=== PATIENT | female | born 1995 | race Caucasian/White ===

== ENCOUNTER 2016-12-28 13:35 | Inpatient (IN) | payer MEDICAID ==
[~2016-12-28] VITALS: Ht 154.9 cm; Wt 81.6 kg
[2016-12-28 15:35] LABS: HEMATOCRIT 33.9 % (36.0-48.0); HEMOGLOBIN 11.3 g/dL (12-16); MCHC 33.3 g/dL (31.0-37.0); MCV 86.9 fL (80.0-100.0); MEAN PLATELET VOLUME 10.8 fL (7.4-10.4); RBC 3.9 10x6/uL (4.00-5.40); RDW 13.9 % (11.5-14.5); WBC 19.3 10x3/uL (4.8-10.8)
[2016-12-28 16:37] LABS: APPEARANCE CLEAR (CLEAR); BACTERIA FEW /hpf (NONE SEEN); BILIRUBIN NEGATIVE (NEGATIVE); COLOR YELLOW (YELLOW); GLUCOSE NEGATIVE (NEGATIVE); KETONE NEGATIVE (NEGATIVE); LEUKOCYTE ESTERASE TRACE (NEGATIVE); NITRITE NEGATIVE (NEGATIVE); PROTEIN NEGATIVE (NEGATIVE); UROBILINOGEN NORMAL (NORMAL); WHITE CELLS - URINE 0-5 /hpf (0-5)
[2016-12-28 16:46] LABS: UDS - AMPHET NEGATIVE QUAL (NEGATIVE); UDS - BARB NEGATIVE QUAL (NEGATIVE); UDS - BENZO NEGATIVE QUAL (NEGATIVE); UDS - COCAINE NEGATIVE QUAL (NEGATIVE); UDS - METH NEGATIVE QUAL (NEGATIVE); UDS - OPIATE NEGATIVE QUAL (NEGATIVE); UDS - PCP NEGATIVE QUAL (NEGATIVE); UDS - THC POSITIVE QUAL (NEGATIVE)
[2016-12-28 20:03] VITALS: BP 108/53; BMI 34.0
[2016-12-29] VITALS (9 sets, daily range): BP systolic 94–120; BP diastolic 51–79; Ht 154.9 cm; Wt 81.6 kg
[2016-12-29 04:09] LABS: HIV 1 & 2- RAPID SCREEN NEGATIVE (NEGATIVE)
[2016-12-29 09:16] LABS: HEPATITIS C ANTIBODY >11.0 (0.0-0.9)
--- NOTE | 2016-12-29 13:34 | NUR ---
TIME 1251 BABY CARRIED TO NURSERY ACCOMPANIED BY FATHER AND RN
--- NOTE | 2016-12-29 14:00 | NUR ---
MINOR BRUSING NOTED PROXIMAL TO IV SITE AND ANESISIA ADVISED THAT THE IV STILL APEARED TO BE PATENT.
--- NOTE | 2016-12-29 14:09 | NUR ---
FUNDUS FIRM AT UMBILICUS WITH MINIMAL LOCIA
--- NOTE | 2016-12-29 14:13 | NUR ---
RCVD PT FROM RECOVERY WITH NO C/O PAIN AT THIS TIME. VSS, BREATH SOUNDS CLEAR & UNLABORED X2. BOWEL SOUNDS HYPOACTIVE X4. LINENS CHANGED AT THIS TIME. CLEAN GOWN PROVIDED. PT DENIES FURTHER NEEDS.
[2016-12-29 14:18] LABS: RUBELLA IGG 1.58 index (Immune >0.99)
--- NOTE | 2016-12-29 14:32 | NUR ---
SCD'S ON, CONNECTED TO PUMP AND PUMP FUNCTIONING. INCENTIVE SPIROMETER PROVIDED AND RETURN DEMONSTRATION OF 2000ML PULLED PER PT X4. [facility] MUG PROVIDED FOR WATER. FAMILY IN ROOM FOR SUPPORT. PT DENIES NEEDS.
--- NOTE | 2016-12-29 14:36 | NUR ---
DEMEROL WEATHER ALGORITHM SCIENTIST INITIATED PER ORDERS. SEE EMAR. PT C/O N/V. EMESIS BAG PROVIDED AT THIS TIME. PT REQUESTS & RECEIVES ICE WATER AND CHICKEN BROTH. ADV PT TO TAKE SMALL SIPS UNTIL NAUSEA RESOLVES. PT VERBALIZED UNDERSTANDING.
--- NOTE | 2016-12-29 14:54 | NUR ---
30MG TORADOL GIVEN PER ORDERS. SEE EMAR. PT KLAUDIA. WELL. WILL CONT TO MONITOR.
--- NOTE | 2016-12-29 15:05 | NUR ---
PAIN REASSESSMENT COMPLETE. PT REPORTS PAIN 4/10 AT THIS TIME AND TOLERABLE. PT DENIES FURTHER NEEDS. WILL CONT. POC.
--- NOTE | 2016-12-29 16:05 | NUR ---
VSS. PT SITTING UP IN BED HOLDING . PT DENIES N/V. 300 ML CLEAR BLOOD TINGED URINE EMPTIED FROM ANTHONY CATH. PUMPS CLEARED AT THIS TIME. WILL CONT TO MONITOR.
--- NOTE | 2016-12-29 17:15 | NUR ---
NEW CHUCKS, BLUE PADS, PERIPADS AND GOWN PLACED. PT ABLE TO LIFT SELF UP IN BED WITHOUT ASSISTANCE. SMALL LOCHIA RUBRA NOTED ON PERIPADS. FUNDUS FIRM, ML, U/1. 100 ML PINK TINTED URINE EMPTIED FROM URONDER. Cole EMERYDUDLEY TO ROOM WITH . INFANT LEFT IN OPEN CRIB AT BEDSIDE. DIETARY TRAY DELIVERED AT THIS TIME AND PROVIDED TO PT. PT DENIES FURTHER NEEDS. WILL CONT TO MONITOR.
--- NOTE | 2016-12-29 17:57 | NUR ---
PT AWARE THAT [facility] HAS BEEN NOTIFIED ABOUT +UDS FOR THC.
--- NOTE | 2016-12-29 19:04 | NUR ---
REPORT REC'D FROM Ross SHELBY RN.
--- NOTE | 2016-12-29 19:18 | NUR ---
RN TO BEDSIDE. RN RESUMING CARE OF THIS G2 NOW P2 FOLLOWING DELIVERY OF FEMALE AT 1251. VSS. FUNDUS FIRM, U/1, MIDLINE WITH SMALL AMT RUBRA LOCHIA, NO CLOTS TO PERIPAD. BOWELS SOUNDS ACTIVE X4 QUADS, PT DENIES PASSING FLATUS AT THIS TIME. ABD SOFT TO PALPATION, REPORTS "A LITTLE SORENESS." ANTHONY DRAINED INTO UROMETER. BREATH SOUNDS CLEAR AND EQUAL BILATERALLY. PAIN 3/10 INCISIONAL SORENESS AND BURNING AND STINGING. STATES THAT ROUGHER MERCHANT MILL IS CONTROLLING PAIN WELL. DENIES NEED FOR ADDITIONAL INTERVENTION. DRSG TO INCISION CLEAN, DRY, AND INTACT WITH NO DRAINAGE. INCENTIVE SPIROMETER USED X10 WITH GOOD EFFORT. PT COUGHING AND SPLINTING ALSO WITH GOOD EFFORT. PLAN OF CARE DISCUSSED WITH PT, VERBALIZES AGREEMENT, DENIES QUESTIONS AT THIS TIME. NO VISITOR AT BEDSIDE, REPORTS THAT SPOUSE IS AT WORK BUT SHE ISN'T SURE IF HE IS COMING BACK TO THE HOSPITAL TONIGHT. BED IN LOW POSITION WITH UPPER SIDE RAILS RAISED X2. CL AND PHONE WITHIN REACH. SCD'S REMAIN ON. JORDAN HURST RN TO BEDSIDE WITH INFANT.
--- NOTE | 2016-12-29 20:00 | NUR ---
RN TO BEDSIDE FOR LAST HOURLY V/S CHECK. PT INFANT, REQUESTS TO HAVE V/S CHECKED WHEN SHE FINISHES NURSING. NEW ICE PACK APPLIED TO INCISION. ICE CHIPS AND APPLE JUICE PROVIDED PER REQUEST. DENIES ADDITIONAL NEEDS.
--- NOTE | 2016-12-29 20:05 | NUR ---
SPOKE WITH DR. ALVARENGA, UPDATED ON B/P READINGS. ORDERS OBTAINED TO D/C YONG ANTHONY, AND SWITCH TO P.O MEDS ORDERED.
--- NOTE | 2016-12-29 20:38 | NUR ---
PT CALLS VIA CL. RN TO BEDSIDE. PT CONTINUING TO BREAST FEED . REQUESTS BLANKETS STATES THAT SHE IS COLD. ROOM TEMP INCREASED PER REQUEST. BED IN LOW POSITION WITH UPPER SIDE RAILS RAISED X2. CL AND PHONE WITHIN REACH. WILL CONT TO MONITOR AND ASSIST PRN.
--- NOTE | 2016-12-29 21:41 | NUR ---
RN TO BEDSIDE FOR ROUNDS. PT BONDING WITH INFANT. VSS. FUNDUS REMAINS FIRM, U/1 AND MIDLINE. PAIN 5/10, TORADOL GIVEN PER ORDER AND REQUEST. DENIES ADDITIONAL NEEDS AT THIS TIME. ICE PACK REPLACED TO INCISION. PT DENIES BEING COLD. PT QUESTIONS RN REGARDING ESTABLISHING WITH LOCAL MD A PT AND LOCAL PEDS MD'S FOR HER ELDEST DAUGHTER. PT ALSO EDUCATED ON HEP C AND PRECAUTIONS TO TAKE TO PREVENT SPREAD TO CHILDREN AND ENCOURAGED HER TO HAVE SPOUSE CHECKED AND TO NOTIFY ALL PREVIOUS SEXUAL PARTNERS, VERBALIZED UNDERSTANDING. RN WILL PLACE COMMUNICATION TO CM REGARDING QUESTIONS ABOUT LOCAL MD'S AND BECOMING A PT. DENIES ADDITIONAL NEEDS. SCD'S REMAIN ON. BED IN LOW POSITION WITH UPPER SIDE RAILS RAISED X2. CL AND PHONE WITHIN REACH. WILL CONT TO MONITOR AND ASSIST PRN.
--- NOTE | 2016-12-29 22:11 | NUR ---
PAIN REASSESSMENT COMPLETED. PAIN 07/15. PT IN HIGH FOWLERS POSITION BONDING WITH . DENIES NEEDS AT THIS TIME. BED IN LOW POSITION WITH UPPER SIDE RAILS RAISED X2. CL AND PHONE WITHIN REACH. WILL CONT TO MONITOR AND ASSIST PRN.
--- NOTE | 2016-12-29 23:42 | NUR ---
S/O TO BEDSIDE. PT IN HIGH FOWLERS POSITION CONVERSING WITH S/O AND OTHER VISITOR AT BEDSIDE. BED IN LOW POSITION WITH UPPER SIDE RAILS RAISED X2. CL AND PHONE WITHIN REACH. DENIES NEEDS AT THIS TIME. WILL CONT TO MONITOR AND ASSIST PRN.
[2016-12-30 00:24] VITALS: BP 114/52
--- NOTE | 2016-12-30 00:24 | NUR ---
RN TO BEDSIDE FOR ROUNDS. PT IN HIGH FOWLERS POSITION CONVERSING WITH S/O. PAIN 07/15. VSS. FUNDUS REMAINS FIRM, MIDLINE, U/1 WITH SMALL AMT RUBRA LOCHIA TO PERIPADS, NO CLOTS. CHUXS CHANGED, PT ABLE TO LIFT BUTTOCKS OFF OF BED EASILY AND PULLS SELF UP IN BED. INCENTIVE SPIROMETER USED X10, COUGH AND DEEP BREATHING DONE WITH GOOD EFFORT. ICE WATER GIVEN. DENIES ADDITIONAL NEEDS AT THIS TIME. STATES THAT DIESEL ROLLER OPERATOR IS CONTROLLING PAIN WELL. BED IN LOW POSITION WITH UPPER SIDE RAILS RAISED X2. CL AND PHONE WITHIN REACH. Vero AG, RN TO BEDSIDE WITH INFANT, PT PREPARING AND POSITIONING TO BREAST FEED.
--- NOTE | 2016-12-30 01:10 | NUR ---
RN BACK TO BEDSIDE FOR ANTHONY REMOVAL AND PIV SL. PT BREAST FEEDING . PT INSTRUCTED TO CALL RN VIA CL IF SHE FINISHES BREAST FEEDING BEFORE RN COMES BACK TO BEDSIDE.
--- NOTE | 2016-12-30 02:18 | NUR ---
RN BACK TO BEDSIDE. PT CONTINUES TO BREAST FEED INFANT. INFANT NURSING ON LEFT SIDE WITH GOOD LATCH, SUCK, AND SWALLOW REFLEX NOTED. ANTHONY REMOVED AND PIV TURNED OFF. INSTRUCTED PT TO CALL VIA CALL LIGHT FOR ASSISTANCE OOB WHEN SHE FINISHES FEEDING INFANT. VERBALIZED UNDERSTANDING. S/O AT BEDSIDE RESTING ON COUCH. BED IN LOW POSITION WITH UPPER SIDE RAILS RAISED X2. CL AND PHONE WITHIN REACH. WILL CONT TO MONITOR AND ASSIST PRN
--- NOTE | 2016-12-30 03:50 | NUR ---
EXPRESSES URGE TO VOID. MARKING MACHINE OPERATOR OF DEMEROL DISCONTINUED. UP TO BATHROOM WITH MINIMAL ASSISTANCE. GAIT STEADY BUT SLOW. ENCOURAGED PT. TO SPLINT ABD. WITH HAND. VOIDED 500CC IN [place] HAT. GIANNI PANTIES AND PADS APPLIED. GOWN CHANGED. BACK TO BED. HANDED TO PT. FROM OPEN CRIB. PT. RELATES THAT AMBULATION WAS NOT BAD SHE HAD FEARED. FOB AND SMALL CHILD ON SOFA ASLEEP. SCDS REATTACHED AND CONNECTED TO PUMP AND FUNCTIONAL. PT. DENIES ANY FURTHER NEEDS.
--- NOTE | 2016-12-30 04:33 | NUR ---
CALLED TO ROOM VIA CL. PAIN 11/14 FOLLOWING GETTING OOB. REPORTS PAIN IS ABD CRAMPING AND SORNESS WITH ACHING, BURNING, AND STINGING. 100 MG PO DEMEROL GIVEN PER ORDER. PT EDUCATED ON MED, VERBALIZES UNDERSTANDING. VSS. FUNDUS FIRM U2 WITH SMALL AMT RUBRA LOCHIA, NO CLOTS NOTED. S/O REMAINS AT BEDSIDE RESTING ON COUCH. BED IN LOW POSITION WITH UPPER SIDE RAILS RAISED X2. CL AND PHONE WITH IN REACH. WILL CONT TO MONITOR AND ASSIST PRN.
--- NOTE | 2016-12-30 05:30 | NUR ---
PAIN REASSESSMENT COMPLETED. 06/17. BREAST FEEDING . SANDWICH TRAY, CHIPS AND SODA PROVIDED TO PT. DENIES NEEDS AT THIS TIME. BED IN LOW POSITION WITH UPPER SIDE RAILS RAISED X2. CL AND PHONE WITHIN REACH. WILL CONT TO MONITOR AND ASSIST PRN.
--- NOTE | 2016-12-30 06:35 | NUR ---
PT CALLS VIA CL. UP TO VOID AT 0610, PT REQUIRED VERBAL CUES TO STAND UP STRAIGHT AND TAKE STEPS INSTEAD OF SHUFFLING FEET. PT VOIDED 400 MLS IN HAT. SMALL AMT RUBRA LOCHIA TO PERIPAD, NO CLOTS. BACK TO BED. S/O REMAINS RESTING ON COUCH. BED IN LOW POSITION WITH UPPER SIDE RAILS RAISED X2. CL AND PHONE WITHIN REACH. HANDED TO PT FOR CONTINUED BREAST FEEDING.
--- NOTE | 2016-12-30 07:15 | NUR ---
RCVD PT FROM Vero PAUL RN. PT SITTING UP IN BED AT THIS TIME. PT DENIES PAIN OR NEEDS AT THIS TIME. WILL RETURN FOR ASSESSMENT.
--- NOTE | 2016-12-30 07:36 | NUR ---
RN TO BEDSIDE. PT FINISHED AT THIS TIME. PLACED IN OPEN CRIB AT BEDSIDE AND SWADDLED PER THIS RN. DR ALVARENGA TO ROOM TO ASSESS PT. PER DR ALVARENGA LARGE DRESSING CAN BE REMOVED, PT MAY SHOWER AND AMB IN [place] TODAY. INFANT TRANSPORTED TO [facility] VIA OPEN CRIB PER THIS RN AT THIS TIME.
[2016-12-30 08:03] VITALS: BP 112/61
--- NOTE | 2016-12-30 08:03 | NUR ---
SHIFT ASSESSMENT COMPLETE AT THIS TIME. BREATH SOUNDS CLEAR AND UNLABORED X2. HR-RRR, PPP, PIV TO LT FOREARM PATENT WITH NO SIGNS OF EDEMA NOTED. LARGE BULKY DRESSING REMOVED PER VERBAL ORDERS FROM DR ALVARENGA. STERISTRIPS IN PLACE C/D/I OVER BLI. PERIPAD PLACED OVER INCISION. PT INSTRUCTED ON HOW TO CLEAN AND KEEP INCISION DRY. PT VERBALIZED UNDERSTANDING. SCD'S OFF AT THIS TIME WITH PT REFUSAL TO REPLACE THEM. TEACHING PROVIDED ON AMB TO AVOID BLOOD CLOTS. PT VERBALIZED UNDERSTANDING TO ALL TEACHING PROVIDED. PT DENIES FURTHER NEEDS AT THIS TIME. BED LOW, WHEELS LOCKED, CL IN REACH, SIDE RAILS UP X2.
[2016-12-30 08:52] LABS: HEMATOCRIT 29.5 % (36.0-48.0); MCH 29.1 pg (26.0-34.0); MCHC 33.9 g/dL (31.0-37.0); MCV 85.8 fL (80.0-100.0); MEAN PLATELET VOLUME 9.9 fL (7.4-10.4); RBC 3.44 10x6/uL (4.00-5.40); RDW 13.9 % (11.5-14.5); WBC 25.1 10x3/uL (4.8-10.8)
--- NOTE | 2016-12-30 09:01 | NUR ---
RN TO BS. PT SITTING UP ON SIDE OF BED, TEARFUL STATING "IT HURTS TO MOVE RIGHT NOW. THIS SUCKS." DEMEROL 100MG GIVEN PER ORDERS FOR PAIN RATED 9/10 IN ABD AT THIS TIME. FOB IN ROOM HOLDING AND SMALL CHILD IN ROOM. CASE MANAGEMENT TO ROOM TO TALK WITH PT. ADV PT WILL RETURN TO ASSESS PAIN LEVEL. PT VERBALIZED UNDERSTANDING.
--- NOTE | 2016-12-30 09:12 | NUR ---
CASE MANAGEMENT TO NURSE DESK WITH REPORT THAT PT FEELS 'REALLY DIZZY.' RN TO BEDSIDE. PT TEARFUL SITTING UP ON SIDE OF BED WITH REPORT OF FEELING DIZZY. PT STATES "IT HAPPENED RIGHT AFTER YOU LEFT THE ROOM." ASSISTED PT BACK UP IN BED. ADV PT TO REPOSITION SELF FOR COMFORT WHEN ABLE TO MOVE. PT VERBALIZED UNDERSTANDING. MEAL TRAY REMOVED FROM PT ROOM. PT DENIES FURTHER NEEDS AT THIS TIME. CASE MANAGEMENT REMAINS IN ROOM.
--- NOTE | 2016-12-30 09:23 | NUR ---
Dahiana Butleronnell 12/30/16 LE@ 8:20 S: Patient states." is going good, no problems or concerns, would like to know how to sign up for WIC. She received a VOC from [place] to give to the WIC client here." O: Patient sitting up in bed, toddler in chair next to bed, FOB on sofa sleep. Congratulated on delivery and praised for . Encouraged to continue to feed on demand when showing feeding cues (explained feeding cues), this will help with establishing her milk supply. What takes out your body will make more of. Explained breastmilk composition, provided handout and explained on, positions for , waking a sleeping baby, engorgement, hand expression, benefits of skin to skin, how to hand express, and what to expect the first week. It's normal for the length of feeding to vary from feeding to feeding. Explained growth spurs and how often they occurred. When latching does it hurt are your nipples sore, patient replies, "no". Explained how to apply for WIC she may certify here in [facility] but we have no open appointments until February, called other units, patient states she will discuss with her boyfriend, what unit they would like to go to. Provided work cell number, please call as needed for any help. Will follow up A: Patient appears confident with . P: Continue to promote exclusively . Lilia Santos, CLC
--- NOTE | 2016-12-30 09:48 | NUR ---
TORADOL GIVEN PER ORDERS FOR PAIN RATED 5/10 AT THIS TIME. PT LYING IN BED WITH TO BREAST. PT DENIES FURTHER NEEDS AT THIS TIME.
--- NOTE | 2016-12-30 10:20 | NUR ---
PAIN REASSESSMENT COMPLETE. PT RATES PAIN 3/10 AT THIS TIME AND TOLERABLE. PT DENIES FURTHER NEEDS.
--- NOTE | 2016-12-30 11:30 | NUR ---
PT RINGS CL. RN TO BEDSIDE. PT REPORTS NEED TO VOID. PT ASSISTED TO SITTING UP ON SIDE OF BED. RN ASSISTED PT WITH ABD BINDER. PT REPORTS "THIS FEELS A LITTLE BETTER." PT AMB TO BATHROOM PER SELF. STEADY GAIT NOTED. PT REPORTS THAT SHE WILL WALK THE HALLWAY WHEN SHE'S FINISHED. BLUE SOCKS PROVIDED TO PT AND PT ASSISTED WITH CHANGING GOWN. PT DENIES FURTHER NEEDS AT THIS TIME.
--- NOTE | 2016-12-30 11:39 | NUR ---
Baby's Full Name: Scot Pizano Mother: Dahiana Hong Father: Jac Pizano Children: Daughter - age 1 1/2 Mom states she and her family moved to [place] about 2 weeks ago from [place], [place]. She states they lost their jobs so they moved to [place] to live with her father. She states the home is a safe environment with all working utilities. She states their is 1 indoor cat and outdoor dogs. She has information regarding WIC & SNAP services. She states she will breast feed baby. She states she has all necessary supplies including clothing, diapers, car seat & bottles. She states her aunt is bringing her a bassinette. She states she plans to use [facility] for baby. Discussed UDS (+ THC). Patient states she last smoked THC approximately 3 weeks ago when she was still living in [place], where THC is legal. She voices understanding of [facility] referral. Phone call to Nico with [facility] ([phone]). He states they can provide baby with a Pack & Play & baby starter pack. He will deliver to hospital this afternoon. [facility] will be doing a home visit prior to baby's discharge. CM will follow.
--- NOTE | 2016-12-30 11:45 | NUR ---
PT AMB IN [place] WITH SMALL CHILD TO WAITING ROOM DOOR AND BACK TWICE WITHOUT DIFFICULTY. PT BACK TO ROOM AT THIS TIME.
--- NOTE | 2016-12-30 14:02 | NUR ---
PAIN REASSESSMENT COMPLETE. PT RATES PAIN 4/10 AT THIS TIME AND TOLERABLE. PT C/O PIV HURTING. PIV D/C'D WITH CATH TIP INTACT. PT KLAUDIA. WELL. PT DENIES FURTHER NEEDS AT THIS TIME. WILL CONT. TO MONITOR.
--- NOTE | 2016-12-30 15:21 | NUR ---
Nico with [facility] has delivered pack & play and supplies to hospital, which has been delivered to Mom. Answered questions. Waiting on DHS determination. CM will follow.
[2016-12-30 20:00] VITALS: BP 122/70
--- NOTE | 2016-12-30 20:00 | NUR ---
TO PT'S ROOM FOR SHIFT ASSESSMENT. PT CURRENTLY BREASFEEDING. PT ASKED TO PUSH THE CALL LIGHT ONCE SHE HAS FINISHED SO THIS RN MAY RETURN TO PERFORM SHIFT ASSESSMENT. PT IS AGREEABLE. DENIES NEEDS AT PRESENT.
--- NOTE | 2016-12-30 20:20 | NUR ---
PT RINGS CALL LIGHT. THIS RN TO BEDSIDE. PT PAIN ASSESSED. PT DENIES PAIN AT PRESENT. TRANSERED FROM PT'S ARMS TO CRIB AT BEDSIDE. SHIFT ASSESSMENT COMPLETED. SEE FLOWSHEET. PT HAS AN ABD BINDER ON AT PRESENT. BINDER REMOVED FOR FUNDAL CHECK AND INCISION INSPECTION. FUNDUS FIRM,U/1, SMALL LOCHIA REPORTED. LOW TRANSVERSE INCISION W/STERISTRIPS C/D/I. PM SHIFT POC DISCUSSED W/PT IN REGARDS TO PT GETTING UP TO SHOWER AND AMBULATING IN HALLS BEFORE SHE PLANS TO SLEEP TONIGHT. PT IS AGREEABLE. WISHES TO SHOWER NOW. PT OOB W/OUT ASSISTANCE. TOWELS/SOAP/CLEAN GOWN, PANTIES,PERIPADS PROVIDED. BED LINES CHANGED. TRASH REMOVED FROM ROOM. FLOORS SWEEPED.
--- NOTE | 2016-12-30 20:50 | NUR ---
PT OUT OF SHOWER. ASSISTED W/PUTTING PANTIES AND ABD BINDER ON. PT BACK TO BED. DENIES PAIN OR NEEDS AT PRESENT. BED LOW, SIDE RAILS UP X 2. CALL LIGHT AND PHONE AT PT'S SIDE. INFANT IN CRIB AT BEDSIDE.
--- NOTE | 2016-12-30 21:43 | NUR ---
Pt request prn pain med for pain rating "6/10". Is sitting up in bed . Reports pain is related to cramping in abd. Denies any other needs or concerns. C/L in reach. Bed low. SR upx2.
--- NOTE | 2016-12-30 22:35 | NUR ---
ROUNDS MADE FOR PAIN REASSESSMENT. PT REPORTS PAIN IS NOW 2/10. DENIES NEEDS AT PRESENT. FUSSY. HANDED TO PT FOR NURSING.
--- NOTE | 2016-12-31 | NUR ---
PT RINGS CALL LIGHT. THIS RN TO BEDSIDE. PT REQUEST THIS RN TAKE AND PLACE HER IN THE CRIB SO PT MAY GET UP TO VOID. INFANT FUSSY. PT REPORTS SHE CAN'T REMEMBER HOW LONG SHE NURSED AT 11PM BECAUSE PT FELL ASLEEP. PT ENCOURGAGED TO ATTEMPT TO NURSE AGAIN AND TRY TO NURSE AT LEAST 30 MINS. PT IS AGREEABLE. LATCHES EASILY TO RT BREAST AND NURSES. INFANT NEEDS STIMULATION TO CONTINUE TO NURSE.
--- NOTE | 2016-12-31 00:15 | NUR ---
ROUNDS MADE FOR ASSESSMENT. INFANT REMAINS ON RT BREAST AND PT HAS TO CONTINUALLY STIMULATE TO NURSE. NBN NURSE Kit DOMINGO RN UPDATED. NBN NURSE TO GO SPEAK WITH PT.
--- NOTE | 2016-12-31 01:30 | NUR ---
PT RINGS CALL LIGHT. THIS RN TO ROOM. PT WOULD LIKE TO NOTIFY NBN NURSERY NURSE THAT SHE AND HER SPOUSE HAVE DECIDED TO SUPPLEMENT W/. THIS RN NOTIFIES Kit DOMINGO RN.
--- NOTE | 2016-12-31 03:11 | NUR ---
ROUNDS MADE. PT IN HIGH PERAZA'S W/EYES CLOSED. APPEARS TO BED SLEEPING. RESP EVEN. NO DISTRESS NOTED. PT LEFT UNDISTURBED AT THIS TIME.
--- NOTE | 2016-12-31 05:00 | NUR ---
ROUNDS MADE. PT FOUND TO BE ASLEEP WITH UP IN ARMS. PT WAKENED. INFANT TRANSFERED TO CRIB AT BEDSIDE. PAIN AND NEEDS ASSESSED. PT REPORTS ABD PAIN 5/10. PAIN MED OFFERED. PT ACCEPTS. DEMEROL 50MG ONE TAB GIVEN. SEE EMAR. PT DENIES FURTHER NEEDS AT THIS TIME.
--- NOTE | 2016-12-31 06:15 | NUR ---
ROUNDS MADE. PT IN HIGH PERAZA'S W/EYES CLOSED. RESP EVEN AND UNLABORED. PT LEFT UNDISTURBED AT THIS TIME.
--- NOTE | 2016-12-31 06:30 | NUR ---
THIS RN TO BEDSIDE. PT AWAKENED TO QUESTION IF SHE WOULD MIND HAVING NURSING STUDENTS TODAY. PT IS AGREEABLE. NO NEEDS VOICED AT THIS TIME.
--- NOTE | 2016-12-31 06:52 | NUR ---
REPORT GIVEN TO ON COMING SHIFT
--- NOTE | 2016-12-31 07:00 | NUR ---
DR CASEY VISITS WITH PT.
[2016-12-31 07:30] VITALS: BP 112/66
--- NOTE | 2016-12-31 07:30 | NUR ---
RECEIVED PT LYING SUPINE IN BED. WAKES UPON ENTERING ROOM. VSS. HRRR WITHOUT AUDIBLE MURMUR. BBS CLEAR. BS X 4. ABDOMEN SOFT/NON-DISTENDED. FUNDUS FIRM AT U/U. RUBRA LOCHIA SMALL AMT. NO CLOTS OR HEAVY BLEEDING PER PT STATES. NEG HOMANS' SIGN. PPP. NO EDEMA NOTED TO BLE. MULTIPLE SCABS/SORES NOTED ON ARMS, LEGS AND TRUNK AREAS. PT STATES VOIDING WITHOUT DIFFICULTY. STATES PASSING GAS. ABDOMINAL BINDER REMOVED FOR EXAM. INCISION WITH STERISTRIPS WITHOUT REDNESS, SWELLING OR DRAINAGE NOTED. INFANT TO ROOM. PLACED IN PT ARMS FOR AND BONDING. SR UP X 2. CALL LIGHT IN REACH.
[2016-12-31 07:46] LABS: BASOPHILS 0.1 % (0-2); EOSINOPHILS 0.8 % (0-7); HEMATOCRIT 28.5 % (36.0-48.0); HEMOGLOBIN 9.2 g/dL (12-16); IMMATURE GRANULOCYTES 1.5 % (0-5); LYMPHOCYTES 10.4 % (15-50); MCH 28.7 pg (26.0-34.0); MCHC 32.3 g/dL (31.0-37.0); MEAN PLATELET VOLUME 10.4 fL (7.4-10.4); MONOCYTES 8.7 % (2-11); NEUTROPHILS 78.5 % (40-80); PLATELET COUNT 213 10x3/uL (130-400); RBC 3.21 10x6/uL (4.00-5.40); RDW 14.4 % (11.5-14.5)
[2016-12-31 07:47] LABS: MCV 88.8 fL (80.0-100.0); WBC 18.2 10x3/uL (4.8-10.8)
--- NOTE | 2016-12-31 08:47 | NUR ---
PT UP IN BATHROOM AT THIS TIME. DENIES NEEDS OR C/O.
--- NOTE | 2016-12-31 10:09 | NUR ---
PT C/O INCISIONAL PAIN OF "3" ON 0-10 PAIN SCALE. DEMEROL 50 MG GIVEN PO ORDERED. PT INSTRUCTED ON MED. VERBALIZES UNDERSTANDING.
--- NOTE | 2016-12-31 10:50 | NUR ---
PT SITTING UP IN BED. VISITS WITH SO. HOLDS INFANT WITH MUCH WARMTH SHOWN. STATES PAIN MEDICATION RELIEVING PAIN. DENIES NEEDS OR C/O.
--- NOTE | 2016-12-31 12:00 | NUR ---
PT AMBULATORY IN ROOM. CARING FOR INFANT. DENIES C/O OR NEEDS.
--- NOTE | 2016-12-31 13:03 | NUR ---
DR CASEY NOTIFIED OF BABY'S DISCHARGE ORDER. NEW ORDERS RECEIVED.
--- NOTE | 2016-12-31 13:45 | NUR ---
DISCHARGE INSTRUCTIONS GIVEN TO PT. PT VERBALIZES UNDERSTANDING OF ALL INSTRUCTIONS. COPIES GIVEN TO PT. PT VERBALIZES UNDERSTANDING OF ALL INSTRUCTIONS. COPIES GIVEN TO PT. PT GIVEN RX FOR DEMEROL 50 AND IBUPROFEN 600. PT AWAITS 'S DISCHARGE.
--- NOTE | 2016-12-31 14:40 | NUR ---
PT READY FOR DISCHARGE. DISCHARGED VIA WHEELCHAIR PER NURSING STUDENTS WITH TO PRIVATE VEHICLE.
== END 2016-12-31 14:40 | disposition home or self-care (01) | DRG 766 ==
LOC: D.LDO 13:35 → D.LD 18:45
PROVIDERS: Obstetrics & Gynecology; ADMIT Obstetrics & Gynecology
PROC: 10D00Z1 Extraction of Products of Conception, Low, Open Approach (ICD-10-PCS; principal; 2016-12-29 12:00)
DX: O99.324 Drug use complicating childbirth (principal); F12.90 Cannabis use, unspecified, uncomplicated; O33.9 Maternal care for disproportion, unspecified; Z3A.41 41 weeks gestation of pregnancy; Z37.0 Single live birth; O75.89 Other specified complications of labor and delivery; D72.0 Genetic anomalies of leukocytes

== ENCOUNTER 2017-05-23 23:13 | Emergency (ER) | payer MEDICAID ==
[2016-12-29 13:55] VITALS: BMI 34.0
[2017-05-24 00:08] LABS: HEMATOCRIT 38.1 % (36.0-48.0); HEMOGLOBIN 13.3 g/dL (12-16); LYMPHOCYTES 27.9 % (15-50); MCH 28.7 pg (26.0-34.0); MCHC 34.9 g/dL (31.0-37.0); MCV 82.1 fL (80.0-100.0); MEAN PLATELET VOLUME 9.9 fL (7.4-10.4); NEUTROPHILS 67.1 % (40-80); RBC 4.64 10x6/uL (4.00-5.40); RDW 13.1 % (11.5-14.5); WBC 13.9 10x3/uL (4.8-10.8)
[2017-05-24 00:10] LABS: PLATELET COUNT 312 10x3/uL (130-400)
[2017-05-24 00:14] LABS: APPEARANCE CLOUDY (CLEAR); BILIRUBIN NEGATIVE (NEGATIVE); COLOR YELLOW (YELLOW); GLUCOSE NEGATIVE (NEGATIVE); KETONE NEGATIVE (NEGATIVE); NITRITE NEGATIVE (NEGATIVE); PROTEIN TRACE mg/dL (NEGATIVE); SPECIFIC GRAVITY 1.015 (1.005-1.020); UROBILINOGEN NORMAL (NORMAL)
[2017-05-24 00:14] LABS: HCG SERUM POSITIVE (NEGATIVE)
[2017-05-24 00:15] LABS: BACTERIA NONE SEEN /hpf (NONE SEEN); EPITHELIAL CELLS 0-5 /hpf (0-5); MUCUS <1+ /lpf (NONE SEEN); RED CELLS - URINE 25-50 /hpf (0-5); WHITE CELLS - URINE 0-5 /hpf (0-5)
== END 2017-05-24 03:15 | disposition home or self-care (01) ==
LOC: D.ER 23:13
PROVIDERS: Physician Assistant Medical
DX: N93.9 Abnormal uterine and vaginal bleeding, unspecified (principal); F17.200 Nicotine dependence, unspecified, uncomplicated